=== PATIENT | male | born 1970 | race Caucasian/White ===

== ENCOUNTER 2018-02-05 07:12 | Day surgery (SDC) | payer OTHER ==
[2018-02-04 13:20] VITALS: BMI 27.3
--- NOTE | 2018-02-05 08:26 | PROC ---
Endoscopy Procedure Endoscopy procedure completed. Please see scanned procedure report.
[2018-02-05 08:48] VITALS: TEMP 97.8
[2018-02-05 10:09] VITALS: BP 102/73; PULSE 80
== END 2018-02-05 10:10 | disposition home or self-care (01) ==
LOC: JASU-ENDO 07:12
PROVIDERS: ATTEND Internal Medicine Gastroenterology
PROC: 0DJD8ZZ Inspection of Lower Intestinal Tract, Via Natural or Artificial Opening Endoscopic (ICD-10-PCS; principal; 2018-02-05 08:00)
DX: Z12.11 Encounter for screening for malignant neoplasm of colon (principal)

== ENCOUNTER 2023-01-16 11:11 | Emergency (ER) | payer OTHER ==
[2023-01-16 11:25] VITALS: BMI 30.4
[2023-01-16] MEDS ORDERED: FAMOTIDINE 20 MG/50 ML IVPB 20 MG/50 ML MG IVPB ONE (11:58)
[2023-01-16] MEDS ORDERED: predniSONE 20 MG TABLET (UD) PO ONE (11:58)
[2023-01-16] MEDS ORDERED: FAMOTIDINE 20 MG TABLET PO ONE (12:00)
[2023-01-16] MEDS ORDERED: FAMOTIDINE 20 MG TABLET ONE (12:05)
[2023-01-16] MEDS ORDERED: predniSONE 20 MG TABLET (UD) ONE ×2 (12:05→12:06)
[2023-01-16 12:55] VITALS: BP 113/83; PULSE 86; RESP 20; TEMP 98.3
== END 2023-01-16 12:55 | disposition home or self-care (01) ==
LOC: JER 11:48
DX: R21 Rash and other nonspecific skin eruption (principal); H02.843 Edema of right eye, unspecified eyelid; H02.846 Edema of left eye, unspecified eyelid; T78.40XA Allergy, unspecified, initial encounter
CPT/HCPCS: 99283-25